=== PATIENT | male | born 1935 | race Caucasian/White ===

== ENCOUNTER 2019-07-16 08:48 | Outpatient (CLI) | payer MEDICARE, SELFPAY ==
--- NOTE | 2019-07-16 09:13 | ECG_ITS ---
Measurements Intervals [place] Rate: 71 P: -21 WV: 253 QRS: -58 QRSD: 117 T: 70 QT: 396 QTc: 431 Interpretive Statements SINUS RHYTHM WITH FIRST DEGREE AV BLOCK RSR' IN V1 OR V2, CONSIDER RIGHT VENTRICULAR HYPERTROPHY OR RIGHT VCD LEFT ANTERIOR FASCICULAR BLOCK VOLTAGE CRITERIA FOR LVH ABNORMAL ECG Electronically Signed On 07-16-2019 11:17:51 CDT by Efrain Vyas D.O.
== END 2019-07-16 08:49 | disposition home or self-care (01) ==
LOC: ANHCARD 08:52
PROVIDERS: PCP Family Medicine Adolescent Medicine; Visit Provider Anesthesiology
DX: I10 Essential (primary) hypertension (principal); I44.0 Atrioventricular block, first degree; I44.4 Left anterior fascicular block
CPT/HCPCS: 93005

== ENCOUNTER 2019-07-17 00:22 | Day surgery (SDC) | payer MEDICARE, SELFPAY ==
[2019-07-15 15:31] VITALS: BMI 32.8
[2019-07-17] VITALS (13 sets, daily range): BP systolic 109–160; BP diastolic 50–103; PULSE 60–70; RESP 10–16; TEMP 36.2–36.6; O2SAT 93–99
--- NOTE | 2019-07-17 07:18 | WPDHPUPDATE1 ---
History and Physical Update Update Date/Time: 07/17/19 07:18 History and Physical has been reviewed, including an updated exam of the patient. There are NO changes in the patient's condition. Risks, benefits, and alternatives have been discussed and questions answered. Patient agrees to proceed with procedure.
--- NOTE | 2019-07-17 09:46 | WPDANESEPPF ---
Anes - Initial Pre Proc Eval Procedure: Operation Date: 07/17/19 14:00 Proposed Procedures p Trans Urethral Resection Bladder Tumor with Mitomycin C Bladder Instillation - Wes Cherry MD Date/Time: 07/17/19 09:46 Surgeon: Wes Cherry MD Pre Op Diagnosis: re-occuring bladder tumors Patient Data Age: 84 Gender: M Height: 5 ft 7 in Weight: 95 kg Allergies Allergy/AdvReac Type Severity Reaction Status Date / Time No Known Allergies Allergy Unverified 07/15/19 15:25 Home Medications Medication Instructions Recorded Confirmed Type allopurinol 300 mg PO DAILY 07/15/19 07/15/19 History aspirin 81 mg PO DAILY 07/15/19 07/15/19 History bicalutamide 50 mg PO DAILY 07/15/19 07/15/19 History levothyroxine 100 mcg PO DAILY 07/15/19 07/15/19 History multivit with min-folic acid 0.4 mg PO DAILY 07/15/19 07/15/19 History [Adult One Daily Multivitamin] [id number] [id number] 1 tablet PO DAILY 07/15/19 07/15/19 History [Vitamin D3 Complete] simvastatin 10 mg PO HS 07/15/19 07/15/19 History terazosin 2 mg PO DAILY 07/15/19 07/15/19 History verapamil 240 mg PO Q12H 07/15/19 07/15/19 History Patient hx anesthesia problems: none Family hx anesthesia problems: none PMFSH Past Medical History Medical History (Updated 07/17/19 @ 09:48 by Duran Capellan MD) Arthritis Bladder cancer CAD (coronary artery disease) HTN (hypertension) Hyperlipidemia Hypothyroidism Surgical History Surgical History (Updated 07/17/19 @ 09:49 by Duran Capellan MD) H/O arthroscopic knee surgery Hx of cystoscopy Social History Social History Alcohol intake: never Anes - Eval Final PreProcedure Day of Procedure 07/17/19 09:46 Patient weight: obese Heart: regular rate and rhythm Lungs: clear to auscultation Airway: Mallampati scale class II Neurological: alert and oriented Last oral intake: >/= 8 hours ASA classification: III Emergent: no Anesthetic plan: proceed Anesthesia type and monitoring: general LMA and standard monitoring Informed Consent: The patient's anesthetic plan and its attendant risks and benefits were discussed with the patient/family/POA. Questions were solicited and answers provided to the satisfaction of the patient/family/POA.
[2019-07-17] MEDS: LACTATED RINGERS 1,000 ML 30 ML IV CONT (10:06)
[2019-07-17] MEDS: ceFAZolin 2 GM/D5W 50 ML 2 GM/50 ML BAG IVPB (11:03)
[2019-07-17] MEDS: LIDOCAINE HCL 2% GEL UROJET 10 ML PKG MUCOUS MEM (11:12)
--- NOTE | 2019-07-17 11:57 | PM.PROC ---
Procedure Note - Detailed Date of procedure: 07/17/19 Pre-op diagnosis: re-occuring bladder tumors Post-op diagnosis: same Procedure performed: TURBT (medium, 3mc) Description of procedure: The patient was brought to the operative suite where he is prepped and draped in a routine sterile fashion while in the dorsal lithotomy position. This is done after the uneventful administration of systemic sedation. 2% Xylocaine jelly is introduced intraurethrally and allowed to stand for an appropriate period of time. A 24F resectoscope sheath was placed in the bladder and the bladder is circumferentially inspected carefully. 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 This area is resected in its entirety with an attempt made to include detrusor muscle for pathological evaluation of invasion. The base and periphery of this resected side is cauterized with a loop electrode. The bladder is emptied and the resectoscope was removed. The patient is taken to the recovery room having tolerated this procedure well. Anesthesia: GLMA Surgeon: Wes Cherry MD Estimated blood loss (mL): 0 Drains: Yes (16F Momin catheter) Packing: No Pathology: yes (Bladder tumor) Complications: No immediate complications Condition: stable
--- NOTE | 2019-07-17 12:01 | PM.PROC ---
Procedure Note - Detailed Date of procedure: 07/17/19 Pre-op diagnosis: re-occuring bladder tumors Post-op diagnosis: same Procedure performed: Mitomycin bladder instillation Description of procedure: With the patient in the supine position, a 16F Momin catheter is placed using sterile technique. Using a protective facemask, gown and double layer of gloves Mitomycin 40mg 2gm in 100cc saline is administered through the catheter/into the bladder. The catheter is then plugged. Patient was instructed to lie supine x20min, then to roll both the left and right x20 min. each. Total dwell time will be 60 min., after which the bladder will be drained and catheter removed. Anesthesia: none Surgeon: Wes Cherry MD Estimated blood loss (mL): 0 Drains: No Packing: No Pathology: none sent Complications: No immediate complications Condition: stable Disposition: PACU
== END 2019-07-17 14:30 | disposition home or self-care (01) ==
PROVIDERS: PCP Family Medicine Adolescent Medicine; Visit Provider Urology
PROC: 0TBB8ZZ Excision of Bladder, Via Natural or Artificial Opening Endoscopic (ICD-10-PCS; CPT 52235; principal; 2019-07-17 14:00)
DX: C67.8 Malignant neoplasm of overlapping sites of bladder (principal); I10 Essential (primary) hypertension; I25.10 Atherosclerotic heart disease of native coronary artery without angina pectoris; M19.90 Unspecified osteoarthritis, unspecified site; E78.5 Hyperlipidemia, unspecified; E03.9 Hypothyroidism, unspecified; Z79.82 Long term (current) use of aspirin; E66.9 Obesity, unspecified; Z68.34 Body mass index [BMI] 34.0-34.9, adult
CPT/HCPCS: 52235; 51720; 88305; 88307; A9270; J0690; J1100; J2405; J2704; J3010; J7120; J9280

== ENCOUNTER → 2019-10-27 08:13 | Outpatient (CLI) | payer MEDICARE, SELFPAY ==
--- NOTE | ~2019-10-27 | XR_ITS ---
EXAMINATION: XR chest 2V EXAM DATE: 10/27/2019 08:28 INDICATION: Dyspnea on exertion. TECHNIQUE: Frontal and lateral projections of the chest obtained and reviewed. Comparison is made to prior examination from 11/27/2011. FINDINGS: Scattered calcified pleural plaques bilaterally again noted. There is no elevated left hem idiaphragm, which was in a more normal position on the previous studies. Could be from lung scarring, atelectasis or possibly hemidiaphragm paralysis. No acute airspace disease, no pneumothorax . Some t horacolumbar kyphosis and spondylosis. There is tortuosity of the aorta. IMPRESSION: 1. Development of elevated left hemidiaphragm which could indicate left basilar scarring, atelectas is, or hemidiaphragm paralysis. 2. Scattered calcified pleural plaques. 3. No acute findings. Reviewed, dictated and finalized at location A. IMPRESSION: 1. Development of elevated left hemidiaphragm which could indicate left basil ar scarring, atelectasis, or hemidiaphragm paralysis. 2. Scattered calcified pleural plaques. 3. No acute findings.
== END ==
PROVIDERS: PCP Family Medicine Adolescent Medicine; Visit Provider Family Medicine Adolescent Medicine
DX: R06.09 Other forms of dyspnea (principal); I50.32 Chronic diastolic (congestive) heart failure; R91.8 Other nonspecific abnormal finding of lung field
CPT/HCPCS: 71046

== ENCOUNTER 2019-11-19 13:03 | Outpatient (CLI) | payer MEDICARE, SELFPAY ==
--- NOTE | ~2019-11-19 | XR_ITS ---
EXAMINATION: CT abdomen pelvis wo/w con, XR abdomen/kub 1V DATE: 11/19/2019 13:55 INDICATION: Gross hematuria TECHNIQUE: 1. Computed tomography (CT) of the abdomen and pelvis was performed without intravenous contrast. CT of the abdomen and pelvis was then performed with a total of 130 mL Omnipaque-350 intravenous contras t using a double-bolus technique for simultaneous opacification of the renal parenchyma and renal col lecting system. Automated exposure control and iterative reconstruction technique were employed. The dose-length product was 2457.99 mGy-cm. 2. AP view of the abdomen and pelvis was obtained on 2 radiographs. COMPARISON: 06/18/2017 FINDINGS: CT UROGRAM: Extensive bilateral calcified pleural plaques consistent with prior asbestos exposure. Associated per ipheral round atelectasis/scarring at the basilar bilateral lower lobes. A few scattered small calcif ied pulmonary nodules consistent with old granulomatous disease. Heart size is normal. No pericardial or pleural effusion. Atherosclerotic coronary artery calcifications. Aortic valve calcification. A couple tiny calcification at the otherwise normal liver and spleen consistent with old granulomatou s disease. Gallbladder, pancreas and bilateral adrenal glands are normal. There is mild colonic diver ticulosis with a sigmoid predominance. There is no adjacent inflammatory change to suggest diverticu litis. Small bowel and appendix are normal. Small bilateral fat-containing inguinal hernias. There is calcified atherosclerosis of the aorta and many of the other arteries. No free intraperitoneal gas o r fluid. No pathologically enlarged abdominal or pelvic lymphadenopathy. Severe lumbar spondylosis wi th anterior fusion at L2-L3. Kidneys enhance symmetrically. No urolithiasis. The bilateral renal collecting systems and right uret er are opacified in their entirety. The central portion of the left ureter remains decompressed and u nopacified. No urothelial regularity is along the contrast opacified portions of the ureters or renal collecting systems. There is nonuniform wall thickening of the bladder most prominent along the left bladder wall which appears new since the prior study. Nonmobile mural calcification along the nondep endent left and right lateral rodriguez. Prostatomegaly. ABDOMEN RADIOGRAPH(S): Multiple phleboliths in the pelvis. No urolithiasis. Moderate amount of stool in the proximal colon. IMPRESSION: 1. Significant increase in nonuniform bladder wall thickening and bladder wall calcifications. Differ ential would include cystitis or recurrent bladder cancer. Consider cystoscopy for further evaluation . 2. No urolithiasis. 3. Bilateral pleural plaques and associated round atelectasis at the lung bases likely sequela of chr onic asbestos exposure. 4. Prostatomegaly. Reviewed, dictated and finalized at location A. IMPRESSION: 1. Significant increase in nonuniform bladder wall thickening and bladder wall calcifications. Differential would include cystitis or recurrent bladder cancer . Consider cystoscopy for further evaluation. 2. No urolithiasis. 3. Bilateral pleural plaques and associated round atelectasis at the lung bases likely sequela of chronic asbestos exposure. 4. Prostatomegaly.
[2019-11-19 13:38] LABS: Estimated Glomerular Filt Rate 52
== END 2019-11-19 13:04 | disposition home or self-care (01) ==
PROVIDERS: PCP Family Medicine Adolescent Medicine; Visit Provider Nurse Practitioner Adult Health
DX: R31.0 Gross hematuria (principal); N40.0 Benign prostatic hyperplasia without lower urinary tract symptoms
CPT/HCPCS: 36415; 74018; 74178; Q9967

== ENCOUNTER 2020-07-22 10:20 | Outpatient (CLI) | payer MEDICARE, SELFPAY ==
--- NOTE | ~2020-07-22 | NM_ITS ---
EXAMINATION: NM bone scan whole body DATE: 07/22/2020 13:12 INDICATION: Prostate cancer TECHNIQUE: 23.37 mCi Tc-99m HDP was administered intravenously. Delayed whole-body scintigrams were obtained. COMPARISON: CT abdomen and pelvis dated 11/19/2019 and bone scan dated 04/11/2018 FINDINGS: Interval increase in size and degree of FDG uptake at a prior sclerotic lesion at the medial aspect o f the left iliac crest. There is also been interval development of multiple new abnormal FDG avid bon e lesions seen in the pelvis, bilateral femurs, the sternum and manubrium, spine and multiple bilater al ribs consistent with now widespread osseous metastatic disease. Unchanged foci of degenerative dahlia nt centered disease at the bilateral knees, right elbow, radial aspect of the right carpus and likely degenerative disc centered uptake in the lumbar spine. There is asymmetric increased activity in the left kidney and ureter suggesting hydroureteronephrosis. IMPRESSION: 1. Interval progression of now widespread metastatic disease in the axial and appendicular skeleton. 2. Left hydroureteronephrosis suggesting obstruction near the level of the ureterovesicular junction. Reviewed, dictated and finalized at location A. IMPRESSION: 1. Interval progression of now widespread metastatic disease in the axial and a ppendicular skeleton. 2. Left hydroureteronephrosis suggesting obstruction near the level of the uret erovesicular junction.
== END 2020-07-22 10:21 | disposition home or self-care (01) ==
PROVIDERS: PCP Family Medicine Adolescent Medicine; Visit Provider Urology
DX: C61 Malignant neoplasm of prostate (principal); C79.51 Secondary malignant neoplasm of bone; N13.30 Unspecified hydronephrosis
CPT/HCPCS: 78306; A9561

== ENCOUNTER 2020-07-29 09:32 | Outpatient (CLI) | payer MEDICARE, SELFPAY ==
--- NOTE | ~2020-07-29 | CT_ITS ---
EXAMINATION: CT abdomen pelvis wo/w con DATE: 07/29/2020 10:22 INDICATION: Hydronephrosis TECHNIQUE: Computed tomography (CT) of the abdomen and pelvis was performed without and with 130 cc O mnipaque 350 intravenous contrast. The dose-length product was 2433.10 mGy-cm. Automated exposure con trol and iterative reconstruction technique were employed. COMPARISON: CT dated 11/19/2019. FINDINGS: There is extensive bilateral pleural calcification, consistent with prior asbestos exposure . There is a 3.1 cm infrarenal abdominal aortic aneurysm. There is moderate left hydronephrosis. Ther e is a lobulated soft tissue mass at the base of the bladder causing significant bladder base impress ion there are bladder wall calcifications. There is irregular bladder wall thickening. No lymphadenopathy. Nonobstructive bowel gas pattern. Colonic diverticulosis without evidence for div erticulitis. The liver, spleen, pancreas, adrenal glands and kidneys are unremarkable. Gallbladder is present. No abnormal lymphadenopathy. There is multilevel sclerosis of the lumbar spine with loss of vertebral body height at L1 and L2, likely metastatic disease. There is also sclerotic lesions of T1 2, T11, T10 and T7. There is extensive sclerosis of the pelvis. IMPRESSION: 1. Interval development of lobulated soft tissue mass involving the prostate gland with involvement o f the bladder. There is a lobulated appearance to the bladder wall. Findings suspicious for prostate cancer. 2: Left hydronephrosis, likely due to obstructing soft tissue at the base of the bladder.. 3: Extensive patchy sclerosis of the spine and pelvis, consistent with metastatic disease. Probable p athologic fractures of L1 and L2. Reviewed, dictated and finalized at location B. IMPRESSION: 1. Interval development of lobulated soft tissue mass involving the prostate gl and with involvement of the bladder. There is a lobulated appearance to the mali dder wall. Findings suspicious for prostate cancer. 2: Left hydronephrosis, likely due to obstructing soft tissue at the base of th e bladder.. 3: Extensive patchy sclerosis of the spine and pelvis, consistent with metastat ic disease. Probable pathologic fractures of L1 and L2.
[2020-07-29 09:58] LABS: Estimated Glomerular Filt Rate 48
== END 2020-07-29 09:33 | disposition home or self-care (01) ==
PROVIDERS: PCP Family Medicine Adolescent Medicine; Visit Provider Urology
DX: N13.30 Unspecified hydronephrosis (principal); N42.9 Disorder of prostate, unspecified; M89.9 Disorder of bone, unspecified
CPT/HCPCS: 74178; Q9967

== ENCOUNTER → 2020-08-02 01:24 | Outpatient (CLI) | payer MEDICARE, SELFPAY ==
[2020-08-02 19:16] LABS: SARS-CoV-2 RNA PCR Negative
== END ==
PROVIDERS: PCP Family Medicine Adolescent Medicine; Visit Provider Urology
DX: Z01.812 Encounter for preprocedural laboratory examination (principal); Z20.822 Contact with and (suspected) exposure to COVID-19
CPT/HCPCS: C9803; U0003; U0005

== ENCOUNTER 2020-08-02 09:16 | Outpatient (CLI) | payer MEDICARE, SELFPAY ==
--- NOTE | 2020-08-02 10:00 | ECG_ITS ---
Measurements Intervals [place] Rate: 68 P: 9 WV: 297 QRS: -55 QRSD: 112 T: 70 QT: 399 QTc: 426 Interpretive Statements SINUS RHYTHM WITH FIRST DEGREE AV BLOCK INCOMPLETE RIGHT BUNDLE BRANCH BLOCK LEFT ANTERIOR FASCICULAR BLOCK LEFT VENTRICULAR HYPERTROPHY AND ST-T CHANGE BASELINE ARTIFACT- I, II, III, AVR, AVL, AVF ABNORMAL ECG Electronically Signed On 08-02-2020 9:30:14 CDT by Efrain Vyas D.O.
== END 2020-08-02 09:17 | disposition home or self-care (01) ==
LOC: ANHSURGERY 09:20
PROVIDERS: PCP Family Medicine Adolescent Medicine; Visit Provider Urology
DX: Z01.810 Encounter for preprocedural cardiovascular examination (principal); I10 Essential (primary) hypertension; R94.31 Abnormal electrocardiogram [ECG] [EKG]
CPT/HCPCS: 93005

== ENCOUNTER 2020-08-05 01:48 | Day surgery (SDC) | payer MEDICARE, SELFPAY ==
[2020-07-30 08:38] VITALS: BMI 32.8
--- NOTE | 2020-08-02 07:50 | PM.HPGS ---
History of Present Illness History of Present Illness Consent: Risks, benefits, and alternatives have been discussed and questions answered. Patient agrees to proceed with procedure. Chief complaint: bladder tumors Narrative: Javon Dawson is a 85 year old male With known metastatic prostate cancer and history of recurrent bladder cancer. Prostate cancer his recent become hormone refractory and repeat staging revealed progression both on CT scan and bone scan. He now has a soft tissue mass at the bladder neck extending into the trigone and obstructing his left ureter. He prevents for cystoscopy with left ureteral stent placement. Review of Systems Cardiovascular: Cardiovascular: Denies chest pain, Denies lightheadedness, Denies palpitations and Denies dyspnea Respiratory: Respiratory: Denies dyspnea Gastrointestinal: Gastrointestinal: Denies diarrhea, Denies nausea and Denies vomiting Genitourinary: Genitourinary: Denies hematuria and Denies dysuria Endocrine: Endocrine: Denies palpitations PMFSH Past Medical History Medical History Arthritis Bladder cancer CAD (coronary artery disease) HTN (hypertension) Hyperlipidemia Hypothyroidism Surgical History Surgical History H/O arthroscopic knee surgery Hx of cystoscopy Social History Social History Smoking packs per day: 2.5 Smoking cigarettes per day: 50.0 Years smoked: 34 Smoking pack-years: 85.00 Smoking status: Former smoker Tobacco type: cigarettes Smoking end date: 10/01/87 Alcohol intake: former Substance use: never Additional living arrangements comments: -[facility] Spiritual care concerns: No Meds Home Medications and Allergies Home Medications Medication Instructions Recorded Confirmed Type Vitamin D3 Complete 1 tablet PO DAILY 07/15/19 07/30/20 History allopurinol 300 mg PO DAILY 07/15/19 07/30/20 History bicalutamide 50 mg PO DAILY 07/15/19 07/30/20 History levothyroxine 100 mcg PO QAM 07/15/19 07/30/20 History simvastatin 10 mg PO HS 07/15/19 07/30/20 History terazosin 2 mg PO DAILY 07/15/19 07/30/20 History verapamil 240 mg PO Q12H 07/15/19 07/30/20 History hydrocodone-acetaminophen 1 - 2 tablet PO Q6H PRN #20 tablet 07/17/19 07/30/20 Rx aspirin [Adult Low Dose Aspirin] 81 mg PO DAILY 07/30/20 07/30/20 History Allergies Allergy/AdvReac Type Severity Reaction Status Date / Time No Known Allergies Allergy Unverified 07/30/20 08:31 Exam Const: General: no acute distress Resp: Effort & Inspection: normal respiratory effort GI: Inspection: non-distended GI Palp: No abdominal tenderness and No Guarding due to palpation present (GI) Auscultation: normal bowel sounds Assessment and Plan Assessment and plan (1) Prostate cancer: Code(s): C61 - Malignant neoplasm of prostate Status: Acute (2) History of primary bladder cancer: Code(s): Z85.51 - Personal history of malignant neoplasm of bladder Status: Acute (3) Hydronephrosis, left: Code(s): N13.30 - Unspecified hydronephrosis Status: Acute Assessment and Plan: Cystoscopy with left ureteral stent placement
--- NOTE | ~2020-08-05 | XR_ITS ---
EXAMINATION: XR retrograde pyelo w/stent LT DATE: 08/05/2020 10:58 INDICATION: Retrograde left ureteral stent placement TECHNIQUE: 7 fluoroscopic spot images of the abdomen and pelvis were obtained during procedure perfor med by Dr. Cherry. Radiologist was not present for the imaging or procedure. The amount of fluoroscop y time used during this procedure was 0.5 minutes. COMPARISON: CT dated 07/29/2020 FINDINGS: Images demonstrate retrograde contrast desiccation of the mildly dilated left ureter and renal collec ting system. On one of the images there is an ovoid filling defects seen in the distal left ureter wh ich without evident correlate on the prior CT . Final images demonstrate placement of a left internal ureteral stent with loops formed in an upper pole calyx of the left kidney and in the bladder. IMPRESSION: 1. Fluoroscopy utilized during placement of a left internal ureteral stent which is in expected posit ion. 2. Small ovoid filling defect in the distal aspect of the initially dilated left ureter without evide nt correlate on the prior CT. Differential would include urothelial malignancy or air bubble. COVID w ith procedure note. Reviewed, dictated and finalized at location A. IMPRESSION: 1. Fluoroscopy utilized during placement of a left internal ureteral stent whic h is in expected position. 2. Small ovoid filling defect in the distal aspect of the initially dilated lef t ureter without evident correlate on the prior CT. Differential would include urothelial malignancy or air bubble. COVID with procedure note.
--- NOTE | 2020-08-05 07:23 | WPDHPUPDATE1 ---
History and Physical Update Update Date/Time: 08/05/20 07:23 History and Physical has been reviewed, including an updated exam of the patient. There are NO changes in the patient's condition. Risks, benefits, and alternatives have been discussed and questions answered. Patient agrees to proceed with procedure.
[2020-08-05] MEDS: LACTATED RINGERS 1,000 ML 30 ML IV CONT (09:58)
[2020-08-05 09:59] VITALS: BP 143/72; PULSE 69; RESP 14; TEMP 36.3; O2SAT 96; BMI 32.4
--- NOTE | 2020-08-05 10:02 | WPDANESEPPF ---
Anes - Initial Pre Proc Eval Procedure: Operation Date: 08/05/20 11:00 Proposed Procedures p Cystoscopy, Left Stent Placement - Wes Cherry MD Date/Time: 08/05/20 10:02 Surgeon: Wes Cherry MD Pre Op Diagnosis: prostate ca, gross hematuria, hydronephrosis Patient Data Age: 85 Gender: M Height: 5 ft 7 in Weight: 95 kg Allergies Allergy/AdvReac Type Severity Reaction Status Date / Time No Known Allergies Allergy Unverified 07/30/20 08:31 Home Medications Medication Instructions Recorded Confirmed Type Vitamin D3 Complete 1 tablet PO DAILY 07/15/19 07/30/20 History allopurinol 300 mg PO DAILY 07/15/19 07/30/20 History bicalutamide 50 mg PO DAILY 07/15/19 07/30/20 History levothyroxine 100 mcg PO QAM 07/15/19 07/30/20 History simvastatin 10 mg PO HS 07/15/19 07/30/20 History terazosin 2 mg PO DAILY 07/15/19 07/30/20 History verapamil 240 mg PO Q12H 07/15/19 07/30/20 History hydrocodone-acetaminophen 1 - 2 tablet PO Q6H PRN #20 tablet 07/17/19 07/30/20 Rx aspirin [Adult Low Dose Aspirin] 81 mg PO DAILY 07/30/20 07/30/20 History Patient hx anesthesia problems: none Family hx anesthesia problems: none PMFSH Past Medical History Medical History Arthritis Bladder cancer CAD (coronary artery disease) HTN (hypertension) Hyperlipidemia Hypothyroidism Surgical History Surgical History H/O arthroscopic knee surgery Hx of cystoscopy Social History Social History Smoking packs per day: 2.5 Smoking cigarettes per day: 50.0 Years smoked: 34 Smoking pack-years: 85.00 Smoking status: Former smoker Tobacco type: cigarettes Smoking end date: 10/01/87 Alcohol intake: former Alcohol use details: QUIT DRINKING 1987 Substance use: never Living arrangements: with family Additional living arrangements comments: -[facility] Spiritual care concerns: No Anes - Eval Final PreProcedure Day of Procedure 08/05/20 10:02 Patient weight: obese Heart: regular rate and rhythm Lungs: decreased breath sounds Airway: Mallampati scale class III Neurological: alert and oriented Last oral intake: >/= 8 hours ASA classification: III Emergent: no Anesthetic plan: proceed Anesthesia type and monitoring: general LMA and standard monitoring Informed Consent: The patient's anesthetic plan and its attendant risks and benefits were discussed with the patient/family/POA. Questions were solicited and answers provided to the satisfaction of the patient/family/POA.
[2020-08-05] MEDS: ceFAZolin 2 GM/D5W 50 ML 2 GM/50 ML BAG IVPB (10:27)
[2020-08-05] MEDS: LIDOCAINE HCL 2% GEL UROJET 10 ML PKG MUCOUS MEM (10:50)
[2020-08-05 10:58] VITALS: BP 126/59; PULSE 63; RESP 14; O2SAT 94
--- NOTE | 2020-08-05 11:06 | PM.PROC ---
Procedure Note - Detailed Date of procedure: 08/05/20 Pre-op diagnosis: Prostate ca, gross hematuria, left hydronephrosis Post-op diagnosis: same Procedure performed: Cystoscopy, left retrograde pyelography and left ureteral stent placement Description of procedure: patient is brought to the operative suite where he has prepped draped in routine sterile fashion while in dorsal lithotomy position. 2% xylocaine jelly was introduced intraurethrally and systemic sedation is administered per the anesthesia department. Cystoscopy is undertaken with a 21 F rigid cystoscope. There is a approximately 3 cm lobules of prostatic tissue, likely neoplastic, extending from the bladder neck into the left galina trigone. With moderate effort, however, was able to see over that and identify his left ureteral orifice. A 0.035 in glidewire was advanced in the left renal pelvis. Retrograde pyelography showed moderate left hydronephrosis with obstruction at the ureterovesical junction. A 6 F variable length stent was positioned with the proximal coil in the renal pelvis and distal coil in the bladder. Remainder of the bladder appeared to have no additional neoplastic implants. Were no mucosal abnormalities in the right ureteral orifice appeared on obstructed. Anesthesia: MAC Surgeon: Wes Cherry MD Estimated blood loss (mL): 0 Drains: Yes (6F left ureteral stent) Packing: No Pathology: none sent Complications: No immediate complications Condition: stable Disposition: PACU
[2020-08-05] MEDS: fentaNYL CITRATE INJ (*CRX) 100 MCG/2 ML VIAL 25 MCG IV PUSH ×4 (11:13→11:31)
[2020-08-05 11:25] VITALS: BP 150/63; PULSE 64; RESP 16; O2SAT 95
[2020-08-05] MEDS: oxyCODONE HCL (*CRX) 5 MG TAB IR PO (11:44)
[2020-08-05 11:53] VITALS: BP 150/71; PULSE 66; RESP 16; O2SAT 96
[2020-08-05 12:20] VITALS: BP 150/71; PULSE 66; RESP 16; O2SAT 95
[2020-08-05 12:50] VITALS: BP 136/66; PULSE 62; RESP 16; O2SAT 95
== END 2020-08-05 13:15 | disposition home or self-care (01) ==
PROVIDERS: PCP Family Medicine Adolescent Medicine; Visit Provider Urology
PROC: (CPT 52352; principal; 2020-08-05 11:00)
DX: C61 Malignant neoplasm of prostate (principal); N13.30 Unspecified hydronephrosis; R31.0 Gross hematuria; Z85.51 Personal history of malignant neoplasm of bladder; M19.90 Unspecified osteoarthritis, unspecified site; I25.10 Atherosclerotic heart disease of native coronary artery without angina pectoris; I10 Essential (primary) hypertension; E78.5 Hyperlipidemia, unspecified; Z87.891 Personal history of nicotine dependence; E03.9 Hypothyroidism, unspecified; Z79.82 Long term (current) use of aspirin; E66.9 Obesity, unspecified; Z68.32 Body mass index [BMI] 32.0-32.9, adult
CPT/HCPCS: 52332; 74420; 93005; A9270; C1769; C1887; C2617; C9803; J0131; J0690; J2704; J3010; J7120; Q9966; U0003; U0005